=== PATIENT | female | born 1970 | race Caucasian/White ===

== ENCOUNTER 2016-06-26 04:20 | Emergency (ER) | payer SELFPAY ==
[2016-06-26 04:51] VITALS: TEMP 98.4
--- NOTE | 2016-06-26 05:19 | ED.PDOC ---
History of Present Illness - General Chief Complaint: ENT Problem Stated Complaint: Sore Throat x3 days Time Seen by Provider: 06/26/16 04:20 Source: patient Exam Limitations: no limitations - History of Present Illness Initial Comments: Ms Dena Pang 46 y/o female stated that she had worsening sore throat w/c started 3 days ago.Denies any ill contact,no foreign travel.Painful to swallow no N/V. Timing/Duration: gradual, other - 3 days ago EENT Location: throat Prearrival Treatment: no prearrival treatment Improving Factors: nothing Worsening Factors: eating Associated Symptoms: denies symptoms Allergies/Adverse Reactions: Allergies NO KNOWN ALLERGY Allergy (Verified 06/26/16 04:51) Home Medications: Ambulatory Orders Cefuroxime Axetil [Ceftin] 500 mg PO BID #14 tab 06/26/16 NK 06/26/16 Review of Systems - Review of Systems Constitutional: States: no symptoms reported EENTM: States: see HPI Respiratory: States: no symptoms reported Cardiology: States: no symptoms reported Gastrointestinal/Abdominal: States: no symptoms reported Genitourinary: States: no symptoms reported Musculoskeletal: States: no symptoms reported Skin: States: no symptoms reported Neurological: States: no symptoms reported Endocrine: States: no symptoms reported Past Medical History (General) - Patient Medical History Hx Diabetes: No Hx MRSA: No Surgical History: cholecystectomy, other - Hysterectomy - Vaccination History Hx Tetanus, Diphtheria Vaccination: Yes Hx Influenza Vaccination: Yes Hx Pneumococcal Vaccination: No Immunizations Up to Date: Yes - Social History Hx Tobacco Use: No Hx Alcohol Use: Yes - Occasional wine Hx Substance Use: No Hx Substance Use Treatment: No Hx Depression: No Feels Threatened In Home Enviroment: No Feels Threatened In a Relationship: No Hx Physical Abuse: No Hx Emotional Abuse: No Hx Suspected Abuse: No - Female History Patient is a Female of Child Bearing Age (10 -59 yrs old): Yes Patient : No - Hx of hysterectomy - Triage Comment ED Triage Comment: Strep screen collected by Nurse Guy MALONE during triage Family Medical History - Family History Grandparents Hx Family Hypertension: Yes Hx Family Diabetes: Yes Hx Family Cancer: Yes Physical Exam - Physical Exam General Appearance: Alert, No apparent distress Eye Exam: bilateral normal Ear Exam: bilateral ear: auricle normal, canal normal, TM normal Nasal Exam: normal inspection Throat Exam: normal mouth inspection, pharynx tenderness, tonsillar swelling Neck: lymphadenopathy (R), lymphadenopathy (L) Cardiovascular/Respiratory: regular rate, rhythm, no M/R/G, normal peripheral pulses, normal breath sounds Abdominal Exam: non-tender, no organomegaly Neurologic: alert, oriented x 3 Skin Exam: normal color, warm/dry Progress - Results/Orders Results/Orders: Laboratory Results Group A Strep DNA Positive (NEGATIVE) 06/26/16 04:51 Vital Signs - 24 hr 06/26/16 04:20 Temperature 98.4 F Pulse Rate [ 88 pulse ox] Respiratory 16 Rate Blood Pressure 139/98 [left upper arm ] O2 Sat by Pulse 100 Oximetry Departure - Departure Clinical Impression: Strep pharyngitis Time of Disposition: 05:22 Disposition: Discharge to Home or Self Care Condition: Good Departure Forms: ED Discharge - Pt. Copy, Patient Portal Self Enrollment Instructions: DI for Strep Throat Diet: full liquid diet - until better Prescriptions: Cefuroxime Axetil [Ceftin] 500 mg PO BID #14 tab Home Medications: Ambulatory Orders Cefuroxime Axetil [Ceftin] 500 mg PO BID #14 tab 06/26/16 NK 06/26/16 Additional Instructions: Aleve (OTC) 1-2 tablets am/pm as needed for pain;Return to emergency room as needed
[2016-06-26] MEDS ORDERED: cefTRIAXone SODIUM 1 GM VIAL IM ONE (05:23)
[2016-06-26] MEDS ORDERED: KETOROLAC TROMETHAMINE INJ 30 MG/ML VIAL IM ONE (05:24)
[2016-06-26] MEDS ORDERED: LIDOCAINE 1% 10 ML VIAL INJ ONE (05:27)
[2016-06-26 05:38] VITALS: O2SAT 98
[2016-06-26 05:49] VITALS: BP 134/88
== END 2016-06-26 05:45 | disposition home or self-care (01) ==
LOC: ER 04:20
DX: J02.0 Streptococcal pharyngitis (principal)
CPT/HCPCS: 87651; J0696; J1885

== ENCOUNTER → 2020-02-25 | Outpatient (CLI) | payer BC ==
--- NOTE | 2020-02-26 18:48 | MAM ---
EXAM DESCRIPTION: 3D Screening BILATERAL : Digital Mammography. CLINICAL HISTORY: 50 years Female ANNUAL SCREENING . No complaints. No family history of breast cancer. Menarche age 10. Childbirth age 21. Hysterectomy age 43. No HRT. Lifetime risk of developing breast cancer (Tyrer-Cuzick model)(%): 8.9. COMPARISON: Bilateral screening digital breast 2-D imaging July 2011. TECHNIQUE: Bilateral CC and MLO projection full-field images, digital tomosynthesis mammographic technique. Bilateral digital 2-D full-field MLO images. CAD available for 2-D images. FINDINGS: The breast parenchymal density pattern is: Scattered areas of fibroglandular density. Axillary nodes. Solitary microcalcifications. No skin thickening or nipple retraction No new focal, stellate mass or density, focal asymmetry , and no suspicious microcalcifications bilaterally. Bilateral breast showing more fatty replacement compared to the prior study. IMPRESSION: Benign exam. BIRAD CATEGORY: 2 BENIGN FINDINGS. RECOMMENDATIONS: FOLLOW UP: Routine digital bilateral mammographic screening, one year interval from February 2020. Written communication explaining the IMPRESSION and follow-up, will be mailed to the patient and referring health care provider. According to the [employer], yearly mammograms are recommended starting at age 40 and continuing as long as a woman is in good health. Any breast change noted on a breast self-exam should be reported promptly to the patient's healthcare provider. Breast MRI is recommended for women with an approximately 20-25% or greater lifetime risk of breast cancer, including women with a strong family history of breast or ovarian cancer and women who have been treated for Hodgkin's disease. A negative mammographic report should not delay tissue diagnosis in patients with significant clinical history or physical findings. Extremely dense breast tissue limits the sensitivity of digital mammography. Electronically signed by: Kenneth Sanders MD 02/26/2020 6:46 PM [facility]
== END ==
LOC: MAMMO 07:58
PROVIDERS: ATTEND Emergency Medicine
DX: Z12.31 Encounter for screening mammogram for malignant neoplasm of breast (principal)